=== PATIENT | male | born 1985 ===

== ENCOUNTER 2020-05-16 14:21 | Emergency (ER) | payer SELFPAY ==
--- NOTE | 2020-05-16 17:14 | Emergency Department Report ---
ED Male HPI - General Chief complaint: Pain General Stated complaint: GROIN PAIN/ACCIDENT Time Seen by Provider: 05/16/20 16:46 Source: patient Mode of arrival: Ambulatory Limitations: Language Barrier ED Review of Systems ROS: Stated complaint: GROIN PAIN/ACCIDENT Other details as noted in HPI ED Physical Exam - General Limitations: Language Barrier - exam: Present: normal inspection, other (Patient with a single area of nodu larity overlying the left testicle. There is no external erythema or induration of the skin.). Absent: urethral discharge, scrotal swelling ED Course Vital Signs 05/16/20 14:35 Temperature 98.9 F Pulse Rate 110 H Respiratory 16 Rate Blood Pressure 110/80 [Left] O2 Sat by Pulse 100 Oximetry Critical care attestation.: If time is entered above; I have spent that time in minutes in the direct care of this critically ill patient, excluding procedure time. ED Disposition Condition: Stable Referrals: PRIMARY CARE, [Primary Care Provider] - 3-5 Days
[2020-05-16] MEDS ORDERED: MORPHINE 2 MG/1 ML INJ IM ONE (17:18)
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
[2020-05-16 17:29] LABS: Bilirubin,Urine NEG (Negative); Blood,Urine NEG (Negative); Color,Urine Colorless (Yellow); Mucus,Urine FEW /HPF; Protein,Urine <15 mg/dL mg/dL (Negative); RBC,Urine < 1.0 /HPF (0.0-6.0); Urobilinogen,Urine < 2.0 mg/dL (<2.0)
[2020-05-16 17:38] LABS: WBC,Urine < 1.0 /HPF (0.0-6.0)
--- NOTE | 2020-05-16 18:17 | Ultrasound Report ---
Testicular ultrasound with Doppler INDICATION: Left testicular pain FINDINGS: The right testicle measures 3.2 x 1.8 x 2.9 cm and the left testicle measures 3.4 x 1.3 x 2 .6 cm. There is microlithiasis identified bilaterally. Normal flow present within both epididymis. Th ere are 2 small fairly well-circumscribed hypoechoic lesions within the peripheral left testicle that appear to correspond to the palpable abnormality. These lesions measure 6 mm in greatest diameter an d 5 mm in greatest diameter respectively. They appear to be separate from the mediastinum of the test icle and are adjacent to the tunica albuginea. No demonstrated increased vascularity were appreciated within these lesions. IMPRESSION: 1. No evidence of orchitis or epididymitis. 2. Two discrete subcentimeter (6 mm and 5 mm respectively) lesions within the peripheral testicle janet t appear to be at least partially cystic but does contain some internal echoes. While these lesions a re ultimately nonspecific a complex testicular cyst or complex tunica albuginea cyst could have a sim ilar appearance. No internal Doppler flow was appreciated within these lesions however given the smal l size of the lesions 3-6 month ultrasound follow-up is suggested. 3. 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 Signer Name: Tao Kuhn MD Signed: 05/16/2020 6:12 PM Workstation Name: [id number]
[2020-05-16] MEDS ORDERED: SODIUM CHLORIDE 0.9% 1000 ML 3,000 ML IV ONE (18:21)
[2020-05-16] MEDS ORDERED: INSULIN REGULAR, HUMAN 100 UNIT/ML 3ML VIAL SUB-Q ONE (18:21)
[2020-05-16] MEDS ORDERED: INSULIN REGULAR, HUMAN 100 UNIT/ML 3ML VIAL IV ONE (18:25)
[2020-05-16 18:57] LABS: Basophils % (Auto) 0.5 % (0.0-1.8); Eosinophils # (Auto) 0.1 K/mm3 (0.0-0.4); Eosinophils % (Auto) 1.4 % (0.0-4.3); Hematocrit 48.3 % (35.5-45.6); Hemoglobin 16.8 gm/dl (11.8-15.2); Lymphocytes # (Auto) 2.2 K/mm3 (1.2-5.4); Lymphocytes % (Auto) 27.2 % (13.4-35.0); Mean Corpuscular HGB Conc 35 % (32-34); Mean Corpuscular Volume 93 fl (84-94); Monocytes # (Auto) 0.8 K/mm3 (0.0-0.8); Monocytes % (Auto) 9.4 % (0.0-7.3); Platelet Count 291 K/mm3 (140-440); Red Blood Count 5.21 M/mm3 (3.65-5.03); Red Cell Distribution Width 13.1 % (13.2-15.2)
[2020-05-16] MEDS ORDERED: INSULIN REGULAR, HUMAN 100 UNITS/1 ML ONE (19:00)
[2020-05-16 19:20] LABS: Alanine Aminotransferase 35 units/L (7-56); Albumin 4.8 g/dL (3.9-5); BUN/Creatinine Ratio 21; Blood Urea Nitrogen 21 mg/dL (9-20); Calcium 10.5 mg/dL (8.4-10.2); Hemolysis Index 21
[2020-05-16 22:11] VITALS: BP 120/79
== END 2020-05-16 21:43 | disposition home or self-care (01) ==
LOC: ED 14:21
DX: N44.2 Benign cyst of testis (principal); R73.9 Hyperglycemia, unspecified; Z79.899 Other long term (current) drug therapy
CPT/HCPCS: 36415; 80053; 81001; 82805; 82962; 85025; 93975; 96361; 96372; 96374; 99284; J2270; J7030; J1815